=== PATIENT | male | born 1945 | race Caucasian/White ===

== ENCOUNTER 2017-01-15 03:29 | Inpatient (IN) | payer MEDICARE ==
[2017-01-15 03:43] VITALS: BMI 26.3
--- NOTE | 2017-01-15 04:10 | ED PDOC ---
Arrival/HPI - General Chief Complaint: Shortness Of Breath Time Seen by Provider: 01/15/17 03:35 Historian: Patient - History of Present Illness Narrative History of Present Illness (Text): 01/15/17 04:03 Jorje Mercado is a 71 year old male, whose past medical history includes CAD with stents, a-fib on coumadin, CABG and recent cardiac stress test with a ejection fraction of 12% on 11/12/2016, presents to the emergency department complaining of worsening shortness of breath associated with chest tightness beginning at 2: 30 am. Patient used Breo breathing treatment at home for minimal relief. Denies any fever, chills, headache, dizziness, nausea, vomiting, urinary symptoms or any other complaints at this time. Time/Duration: 1-3 hours Symptom Onset: Gradual Symptom Course: Worsening Severity Level: Mild Activities at Onset: Light Context: Home Past Medical History - Provider Review Nursing Documentation Reviewed: Yes - Cardiac Hx Pacemaker: Yes (12 yrs) - Pulmonary Hx Asthma: Yes Hx Chronic Obstructive Pulmonary Disease (COPD): Yes - Neurological Hx Neurological Disorder: No Hx Paralysis: No - HEENT Hx HEENT Disorder: No - Renal Hx Renal Disorder: No - Endocrine/Metabolic Hx Endocrine Disorders: No Hx Diabetes Mellitus Type 2: Yes - Hematological/Oncological Hx Blood Disorders: No Hx Blood Transfusions: No Hx Blood Transfusion Reaction: No - Integumentary Hx Dermatological Disorder: No - Musculoskeletal/Rheumatological Hx Musculoskeletal Disorders: No - Gastrointestinal Hx Gastrointestinal Disorders: No - Genitourinary/Gynecological Hx Genitourinary Disorders: No - Psychiatric Hx Psychophysiologic Disorder: No Hx Emotional Abuse: No Hx Physical Abuse: No Hx Substance Use: No - Surgical History Hx Open Heart Surgery: Yes (dble bypass 20 yrs) Other/Comment: pacemaker/defibrillator/12 yrs - Anesthesia Hx Anesthesia Reactions: No Hx Malignant Hyperthermia: No - Suicidal Assessment Feels Threatened In Home Enviroment: No Family/Social History - Physician Review Nursing Documentation Reviewed: Yes Family/Social History: No Known Family HX Smoking Status: Never Smoked Hx Alcohol Use: No Hx Substance Use: No Allergies/Home Meds Allergies/Adverse Reactions: Allergies No Known Allergies Allergy (Verified 01/15/17 03:39) Home Medications: Home Meds Medication Instructions Recorded Confirmed Warfarin [Coumadin] 5 mg PO DAILY 12/29/12 01/15/17 Furosemide [Lasix] 40 mg PO BID 11/12/16 01/15/17 Simvastatin 40 mg PO DAILY 11/12/16 01/15/17 Telmisartan/Hydrochlorothiazid 1 tab PO DAILY 11/12/16 01/15/17 [Micardis Hct 12.5 mg-40 mg] MetFORMIN [glucoPHAGE] 1,000 mg PO DAILY 11/30/16 12/06/16 Sotalol HCl [Sotalol HCl] 40 mg PO BID 11/30/16 01/15/17 Clopidogrel [Plavix] 75 mg PO DAILY 12/06/16 01/15/17 Albuterol Sulfate [Proair Hfa] 0.09 mg IH PRN PRN 01/15/17 01/15/17 Cyanocobalamin/FA/Pyridoxine 1 tab PO DAILY 01/15/17 01/15/17 [Folbic 2 mg-2.5 mg-25 mg] Fluticasone/Vilanterol [Breo 1 inhaler INH BID 01/15/17 01/15/17 Ellipta 200-25 Mcg INH] Metoprolol Succinate/Hctz 1 tab PO BID 01/15/17 01/15/17 [Metoprolol ER-Hctz 100-12.5 mg] Review of Systems - Physician Review All systems were reviewed & negative as marked: Yes - Review of Systems Constitutional: Normal. absent: Fatigue, Weight Change Respiratory: SOB, Cough Cardiovascular: Chest Pain. absent: Palpitations Gastrointestinal: Normal. absent: Abdominal Pain, Diarrhea, Nausea, Vomiting Neurological: Normal. absent: Headache, Dizziness Psychiatric: Normal Physical Exam Vital Signs Reviewed: Yes Vital Signs Temp Pulse Resp BP Pulse Ox 01/15/17 07:40 98.2 F 71 20 130/70 95 01/15/17 07:07 130/70 01/15/17 07:02 69 16 137/70 94 L 01/15/17 04:23 71 20 132/68 97 01/15/17 04:00 20 93 L 01/15/17 03:41 98.6 F 76 20 163/88 H 96 Temperature: Afebrile Blood Pressure: Hypertensive Pulse: Regular Respiratory Rate: Normal Appearance: Positive for: Well-Appearing, Non-Toxic, Comfortable Pain Distress: None Mental Status: Positive for: Alert and Oriented X 3 - Systems Exam Head: Present: Atraumatic, Normocephalic Pupils: Present: PERRL Extroacular Muscles: Present: EOMI Conjunctiva: Present: Normal Ears: Present: NORMAL TM Mouth: Present: Moist Mucous Membranes Pharnyx: Present: Normal Respiratory/Chest: Present: Wheezes, Rhonchi. No: Respiratory Distress, Accessory Muscle Use Cardiovascular: Present: Normal S1, S2, Irregular Rhythm. No: Murmurs Abdomen: Present: Normal Bowel Sounds. No: Tenderness, Distention, Peritoneal Signs Upper Extremity: Present: Normal Inspection. No: Cyanosis, Edema Lower Extremity: Present: Normal Inspection, Neurovascularly Intact. No: Edema , Tenderness, Swelling Neurological: Present: GCS=15, CN II-XII Intact, Speech Normal, Motor Func Grossly Intact, Normal Sensory Function Skin: Present: Warm, Dry, Normal Color. No: Rashes Psychiatric: Present: Alert, Oriented x 3, Normal Insight, Normal Concentration Medical Decision Making ED Course and Treatment: 01/15/17 04:12 Impression: A 71 year old male presenting to emergency department complaining of worsening shortness of breath and chest tightness since earlier today. Plan: -- EKG -- Labs, cardiac enzymes -- Chest X-ray -- Reassess and disposition Progress Notes: 01/15/17 04:13 EKG interpreted by me: Paced at 81 bpm. 01/15/17 06:02 Chest X-ray interpreted by me: Right lower lobe infiltrate. Increased vascular markings. 01/15/17 06:21 Case discussed with who is aware and agrees with plan to admit patient to the hospital. Accepts patient under his service with on cardiology consult. - Lab Interpretations Lab Results: 01/15/17 04:10 01/15/17 04:10 Lab Results 01/15/17 04:10: WBC 12.0 H D, RBC 4.14, Hgb 13.0 L, Hct 37.4 L, MCV 90.3, MCH 31.4, MCHC 34.8, RDW 12.9, Plt Count 182, MPV 10.0, PT 28.1 H, INR 2.60 H, APTT 39.9 H, Sodium 133, Potassium 4.0, Chloride 96 L, Carbon Dioxide 28, Anion Gap 13, BUN 42 H, Creatinine 0.9, Est GFR ( Amer) > 60, Est GFR (Non-Af Amer ) > 60, Random Glucose 167 H, Calcium 9.3, Total Bilirubin 0.9, AST 31, ALT 28, Alkaline Phosphatase 94, Lactate Dehydrogenase 625, Total Creatine Kinase 43, Troponin I 0.03, NT-Pro-B Natriuret Pep 2140 H, Total Protein 7.7, Albumin 4.1, Globulin 3.5, Albumin/Globulin Ratio 1.2, Procalcitonin < 0.05 L I have reviewed the lab results: Yes - RAD Interpretation Radiology Orders: 01/15/17 04:06 CHEST PORTABLE [RAD] Stat Photoengraving Proofer: ED Physician - EKG Interpretation Interpreted by ED Physician: Yes Type: 12 lead EKG - Medication Orders Current Medication Orders: Albuterol/Ipratropium (Duoneb 3 Mg/0.5 Mg (3 Ml) Ud) 3 ml IH Q2H PRN PRN Reason: Shortness of Breath Atorvastatin Calcium (Lipitor) 40 mg PO DAILY [facility] Last Admin: 01/15/17 11:28 Dose: 40 MG Clopidogrel Bisulfate (Plavix) 75 mg PO DAILY [facility] Last Admin: 01/15/17 11:28 Dose: 75 MG Furosemide (Lasix) 40 mg IVP DAILY [facility] Last Admin: 01/15/17 11:27 Dose: 40 MG MAR Blood Pressure Document 01/15/17 11:27 LGA (Rec: 01/15/17 11:27 LGA [facility] [id number]) Blood Pressure Blood Pressure (100/60-150/90) 130/72 IVP Administration Document 01/15/17 11:27 LGA (Rec: 01/15/17 11:27 LGA [facility] [id number]) Charges for Administration # of IVP Administrations 1 Hydrochlorothiazide (Microzide) 12.5 mg PO DAILY [facility] Last Admin: 01/15/17 11:28 Dose: 12.5 MG Levofloxacin (Levaquin) 500 mg PO DAILY [facility] Last Admin: 01/15/17 11:27 Dose: 500 MG Lisinopril (Zestril) 2.5 mg PO DAILY [facility] Last Admin: 01/15/17 11:33 Dose: 2.5 MG MAR Pulse and Blood Pressure Document 01/15/17 11:33 LGA (Rec: 01/15/17 11:34 LGA [facility] [id number]) Pulse Pulse Rate (60-90) 89 Metformin HCl (Glucophage) 1,000 mg PO BID [facility] Last Admin: 01/15/17 17:52 Dose: 1,000 MG Methylprednisolone (Solu-Medrol) 40 mg IVP Q12 [facility] Last Admin: 01/15/17 11:28 Dose: 40 MG IVP Administration Document 01/15/17 11:28 LGA (Rec: 01/15/17 11:28 LGA [facility] [id number]) Charges for Administration # of IVP Administrations 1 Sotalol HCl (Betapace) 40 mg PO BID [facility] Last Admin: 01/15/17 17:52 Dose: 40 MG MAR Pulse and Blood Pressure Document 01/15/17 17:52 LGA (Rec: 01/15/17 17:53 LGA [facility] [id number]) Pulse Pulse Rate (60-90) 70 Blood Pressure Blood Pressure (100/60-150/90) 130/75 Warfarin Sodium (Coumadin) 7.5 mg PO 1800 [facility] PRN Reason: Protocol Last Admin: 01/15/17 17:52 Dose: 7.5 MG Discontinued Medications Albuterol/Ipratropium (Duoneb 3 Mg/0.5 Mg (3 Ml) Ud) 3 ml IH ONCE STA Stop: 01/15/17 04:16 Last Admin: 01/15/17 04:17 Dose: 3 ML Albuterol/Ipratropium (Duoneb 3 Mg/0.5 Mg (3 Ml) Ud) 3 ml IH [id number] BRIANNA Stop: 01/15/17 15:31 Last Admin: 01/15/17 11:57 Dose: 3 ML Furosemide (Lasix) 40 mg IVP ONCE ONE Stop: 01/15/17 05:57 Last Admin: 01/15/17 07:07 Dose: 40 MG MAR Blood Pressure Document 01/15/17 07:07 EKEOO (Rec: 01/15/17 07:08 [id number] Blood Pressure Blood Pressure (100/60-150/90) 130/70 IVP Administration Document 01/15/17 07:07 EKEOO (Rec: 01/15/17 07:08 [place] [facility] [id number][place] Charges for Administration # of IVP Administrations 1 Furosemide (Lasix) 40 mg IV ONCE ONE Stop: 01/15/17 16:01 Last Admin: 01/15/17 16:16 Dose: 40 MG MAR Blood Pressure Document 01/15/17 16:16 LGA (Rec: 01/15/17 16:17 LGA [id number]) Blood Pressure Blood Pressure (100/60-150/90) 135/78 eMAR Start Stop Document 01/15/17 16:16 LGA (Rec: 01/15/17 16:17 LGA [id number]) Intravenous Solution Start Date 01/15/17 Start Time 16:16 End Date 01/15/17 End time 16:16 Total Infusion Time 0 Ceftriaxone Sodium (Rocephin 1 Gram Ivpb) 100 mls @ 200 mls/hr IV ONCE STA PRN Reason: Protocol Stop: 01/15/17 06:25 Last Admin: 01/15/17 07:08 Dose: 200 MLS/HR eMAR Start Stop Document 01/15/17 07:08 EKEOO (Rec: 01/15/17 07:08 [place] [facility] [place] [id number][place] Intravenous Solution Start Date 01/15/17 Start Time 07:08 Azithromycin (Zithromax 500mg In Ns) 250 mls @ 166.667 mls/hr IV STAT STA PRN Reason: Protocol Stop: 01/15/17 07:26 Last Admin: 01/15/17 16:17 Dose: 166.667 MLS/HR eMAR Start Stop Document 01/15/17 16:17 LGA (Rec: 01/15/17 16:18 LGA [id number]) Intravenous Solution Start Date 01/15/17 Start Time 16:17 End Date 01/15/17 End time 17:47 Total Infusion Time 90 Potassium Chloride (K-Dur 20 Meq Er Tab) 20 meq PO ONCE ONE Stop: 01/15/17 16:01 Last Admin: 01/15/17 16:16 Dose: 20 MEQ - Beatrizibe Statement The provider has reviewed the documentation as recorded by the Troy Baldwin Provider Attestation: All medical record entries made by the Troy were at my direction and personally dictated by me. I have reviewed the chart and agree that the record accurately reflects my personal performance of the history, physical exam, medical decision making, and the department course for this patient. I have also personally directed, reviewed, and agree with the discharge instructions and disposition. Disposition/Present on Arrival - Present on Arrival Any Indicators Present on Arrival: No History of DVT/PE: No History of Uncontrolled Diabetes: No Urinary Catheter: No History of Decub. Ulcer: No History Surgical Site Infection Following: None - Disposition Have Diagnosis and Disposition been Completed?: Yes Diagnosis: CHF (congestive heart failure), Pneumonia Disposition: HOSPITALIZED Disposition Time: 06:00 Patient Plan: Admission Patient Problems: Current Active Problems Problem Status Diagnosed CHF (congestive heart failure) Acute Pneumonia Acute Condition: STABLE
[2017-01-15] MEDS ORDERED: Albuterol-Ipratrop 3 mg / 0.5 (3 ml) UD IH STA (04:15)
[2017-01-15 04:26] LABS: HEMATOCRIT 37.4 % (42.0-52.0); MEAN CELL VOLUME 90.3 fL (80.0-105.0); MEAN CORPUSCULAR HEMOGLOBIN 31.4 pg (25.0-35.0); MEAN CORPUSCULAR HGB CONC 34.8 g/dl (31.0-37.0); RED CELL DISTRIBUTION WIDTH 12.9 % (11.5-14.5)
[2017-01-15 04:38] LABS: INR 2.6 (0.93-1.08); PARTIAL THROMBOPLASTIN TIME 39.9 Seconds (23.7-30.8)
[2017-01-15 04:45] LABS: ALB/GLOB RATIO 1.2 (1.1-1.8); ALKALINE PHOSPHATASE 94 U/L (38-133); ALT/SGPT 28 U/L (7-56); AST/SGOT 31 U/L (15-59); BILIRUBIN,TOTAL 0.9 mg/dL (0.2-1.3); BLOOD UREA NITROGEN 42 mg/dL (7-21); CALCIUM 9.3 mg/dL (8.4-10.5); CARBON DIOXIDE 28 mmol/L (21-33); CHLORIDE 96 mmol/L (98-107); GFR AFRICAN-AMERICAN > 60; GLUCOSE,RANDOM 167 mg/dL (70-110); SODIUM 133 mmol/L (132-148); TOTAL PROTEIN 7.7 g/dL (5.8-8.3)
[2017-01-15 04:57] LABS: TROPONIN I 0.03 ng/mL
[2017-01-15] MEDS ORDERED: cefTRIAXone 1 gm 100 ML IV STA (05:56)
[2017-01-15] MEDS ORDERED: Azithromycin 500MG/NS 250ml 250 ML IV STA (05:57)
[2017-01-15] MEDS ORDERED: Albuterol-Ipratrop 3 mg / 0.5 (3 ml) UD IH PRN (07:28)
[2017-01-15] MEDS: Albuterol-Ipratrop 3 mg / 0.5 (3 ml) UD IH SCH ×2 (09:21→11:57)
--- NOTE | 2017-01-15 11:18 | RAD ---
HISTORY: fever COMPARISON: Comparison is made to 10/13/2013 FINDINGS: LUNGS: Interval appearance of focal reticular opacity/ infiltrate at the right lower lung compared to the previous exam. PLEURA: No significant pleural effusion identified, no pneumothorax apparent. CARDIOVASCULAR: Normal. OSSEOUS STRUCTURES: No significant abnormalities. VISUALIZED UPPER ABDOMEN: Normal. OTHER FINDINGS: Left-sided pacemaker is again seen in place. IMPRESSION: Suspicious for new focal reticular opacities/ infiltrates at the right lower lung.
[2017-01-15] MEDS: levoFLOXacin 500 MG TAB PO SCH (11:27)
[2017-01-15] MEDS: MethylPREDNISolone 40 mg Vial IVP SCH ×2 (11:28→22:14)
--- NOTE | 2017-01-15 12:15 | CON ---
DATE: 01/15/2017 REASON FOR CONSULTATION: Acute bronchitis. REFERRING PHYSICIAN: Dr. Sukhwinder Conroy. History is obtained via extensive discussion with the patient and family. I have also reviewed the chart at length. HISTORY OF PRESENT ILLNESS: The patient is a 71-year-old male with past medical history significant for extensive coronary artery disease, status post multiple cardiac stents, status post open heart surgery, cardiomyopathy, chronic atrial fibrillation, chronic obstructive pulmonary disease, who presents to [facility] with a 2-day history of worsening shortness of breath at rest, dyspnea on exertion, and cough. The patient denies sputum production. The patient also denies chest pain, coughing up of blood or chest pain-made worse with deep respirations. There is no history of temperatures, chills or infectious exposure. There is no history of night sweats, weight loss or appetite change prior to the above events. No history of leg or calf pains. No history of syncope or diaphoresis. No history of recent travel or trauma. REVIEW OF SYSTEMS: No history of nausea, vomiting or diarrhea. No acute urinary symptoms. No new neurological or musculoskeletal complaints. Rest of the review of systems is negative. ALLERGIES: No known allergies. SOCIAL HISTORY: Positive for former heavy tobacco usage. No alcohol. FAMILY HISTORY: No inheritable diseases. HOME MEDICATIONS: Include metoprolol, Breo Ellipta, ProAir, Micardis, Lasix, Plavix, Coumadin, sotalol, metformin, simvastatin. PHYSICAL EXAMINATION: GENERAL: The patient is not short of breath at rest. He is not using accessory muscles for breathing. VITAL SIGNS: Temperature is 98.6, pulse 69, respirations 16, blood pressure 130 /70. Oxygen saturation on nasal cannula is between 94-97%. HEENT: Normocephalic, atraumatic. NECK: No JVD. CARDIOVASCULAR: Systolic ejection murmur at the lower left sternal border. Questionable S3 gallop. LUNGS: Minimal crackles at the bases. Minimal rhonchi. Minimal wheezing. EXTREMITIES: Mild edema. No cyanosis, no clubbing. Calves are nontender to palpation. GASTROINTESTINAL: Abdomen is soft, nontender, nondistended. Bowel sounds are positive. SKIN: No acute rash. NEUROLOGIC: Limited at the present time. PERTINENT LABORATORY DATA: Chest x-ray was done and reviewed. There is a mild increase in the pulmonary vascular congestive changes. There are also chronic minimal right basilar changes. Complete metabolic profile: Chloride 96, BUN 42 , glucose 167. B-type natriuretic peptide 2140. Rest of the metabolic profile is within normal limits. CBC: White count 12.0, hemoglobin 13.0, hematocrit 37.4, platelets of 182. IMPRESSION: 1. Acute bronchitis. 2. Chronic obstructive pulmonary disease. 3. Congestive heart failure. 4. Extensive coronary artery disease. 5. Cardiomyopathy. 6. Chronic atrial fibrillation. PLAN: Again, I did discuss the case with the patient and family at length. The patient presents to [facility] with a 2-day history of worsening pulmonary symptoms. I did review the x-ray as above. The x-ray reveals mild pulmonary vascular congestive changes. There are also chronic changes noted at the right base. Cultures have been ordered and will be analyzed when feasible. The patient has been started on antibiotic therapy. I will also order a procalcitonin level--to discern whether there is an acute underlying pneumonia. On physical exam, the patient is in mild bronchospasm. I will continue with the current nebulizer treatments and intravenous steroids for now. Cardiology evaluation with Dr. Haider has been ordered. The patient remains on Lasix/afterload reduction. The patient does feel better this morning --compared to the previous few days. Additional pulmonary intervention will be based on the above results, as well as the clinical status of the patient. I will discuss the above with Dr. Conroy. Thank you very much for this pulmonary consultation. Roscoe Cole MD cc: [id number] TT: 01/15/2017 12:14:01 Confirmation # [id number] Dictation # [id number] BAIRES
--- NOTE | 2017-01-15 13:00 | HP ---
HISTORY OF PRESENT ILLNESS: The patient is a 71-year-old man with past medical history of ischemic cardiomyopathy s/p AICD placement, CAD status post CABG ( 1993), status post PCI with multiple stent placement (2012, 2013, and most recently in 11/2016), hyperlipidemia and atrial fibrillation who presented to [facility] for evaluation of a several hour history of dyspnea. Per discussion with the patient and his son, the patient was in his usual state of health until the day of presentation to the Emergency Department when he developed a sudden onset of chest tightness associated with dyspnea. The patient reported significant respiratory distress associated with accessory muscle use and conversational dyspnea. He denied any chest pain associated with his symptoms. The patient further denied any fevers, chills, rigors, exertional dyspnea or lower extremity edema or claudication preceding his onset of symptoms. Given his significant respiratory distress, the patient was brought to [facility] Emergency Department. Upon evaluation, he was noted to be tachypneic and hypoxic with an oxygen saturation of 90% on room air. The patient was placed on supplemental oxygen via nasal cannula and received multiple rounds of bronchodilator treatments with slight improvement in his respiratory symptoms. The patient was subsequently admitted to the telemetry cardozo for continued management of acute bronchitis versus possible CHF exacerbation. PAST MEDICAL HISTORY: As per HPI, also non-insulin dependent diabetes mellitus. PAST SURGICAL HISTORY: As per HPI. ALLERGIES: No known drug allergies. MEDICATIONS: Telmisartan/hydrochlorothiazide 40/12.5 mg p.o. daily, Lasix 40 mg p.o. b.i.d., sotalol 40 mg p.o. b.i.d., simvastatin 40 mg p.o. daily, Plavix 75 mg p.o. daily, metformin 1000 mg p.o. b.i.d., Coumadin 7.5 mg p.o. daily, ProAir HFA 2 puffs q.4-6 hours p.r.n. dyspnea or wheeze. FAMILY HISTORY: Significant for hypertension, diabetes and CAD. SOCIAL HISTORY: The patient reports social alcohol use. He denies any history of tobacco use or illicit drug abuse. REVIEW OF SYSTEMS: A 14 point review of systems is negative except as per HPI. PHYSICAL EXAMINATION: VITAL SIGNS: Temperature 98.2, pulse 71, blood pressure 130/70, respiratory rate 20, oxygen saturation 95% on 2 liters nasal cannula. GENERAL: No apparent distress. HEENT: Normocephalic, atraumatic. PERRL, EOMI. No scleral icterus, no conjunctival pallor. NECK: No JVD, no bruits. LUNGS: Scattered wheeze with rhonchi and decreased breath sounds to the right base. CARDIOVASCULAR: Regular rate and rhythm, normal S and S2. CHEST: AICD in place to left anterior chest wall. ABDOMEN: Normoactive bowel sounds, soft, nontender, nondistended. EXTREMITIES: Trace lower extremity edema bilaterally. NEUROLOGIC: Awake, alert and oriented x 3. No focal motor deficits. LABORATORY DATA: WBC 12, hemoglobin 13, hematocrit 37, platelets 182. Sodium 133, potassium 4, chloride 96, bicarb 28, BUN 42, creatinine 0.9, glucose 167. INR 2.6. Troponin 0.03. BNP 2140. IMAGING STUDIES: Chest x-ray demonstrates mild pulmonary venous congestion, AICD in place to left anterior chest wall. ASSESSMENT: The patient is a 71-year-old man with multiple medical comorbidities who was admitted to [facility] for management of acute bronchitis superimposed on possible congestive heart failure exacerbation. PLAN: 1. Acute bronchitis. Dr. Cole of pulmonary and critical care medicine has been consulted for further evaluation and recommendations. The patient has been started on bronchodilators and supplemental oxygen. We will start Solu- Medrol 40 mg IV q.12 hours and Levaquin 500 mg p.o. daily. 2. Ischemic cardiomyopathy status post CABG, status post AICD. Dr. Haider of cardiology has been consulted for further evaluation and recommendations. The patient will be started on furosemide 40 mg IV daily. We will resume home medications consisting of Coumadin 7.5 mg p.o. daily, Lipitor 40 mg p.o. daily, hydrochlorothiazide 12.5 mg p.o. daily, Plavix 75 mg p.o. daily and sotalol 40 mg p.o. b.i.d. 3. CAD status post PCI with multiple stent placements, status post CABG. As above, Dr. Haider of cardiology has been consulted. Continue with care as per # 2. 4. Hypertension. Blood pressure controlled. Continue with current medications. 5. Hyperlipidemia. Continue with Lipitor 40 mg p.o. daily. 6. Non-insulin dependent diabetes mellitus. Continue with metformin 1000 mg p.o. b.i.d. 7. Atrial fibrillation. The patient remains rate controlled. Continue with sotalol 40 mg p.o. b.i.d. and Coumadin 7.5 mg p.o. daily. Continue to monitor INR daily with goal INR of 2-3. 8. GI prophylaxis not indicated as patient is eating. DVT prophylaxis not indicated as patient is on Coumadin for his underlying atrial fibrillation. CODE STATUS: Full code. Sukhwinder Conroy MD cc: [id number] TT: 01/15/2017 13:00:00 sn MTDD
--- NOTE | 2017-01-15 15:31 | CON ---
DATE: 01/15/2017 REASON FOR CONSULTATION AND FOLLOWUP: Cardiac evaluation, history of coronary artery disease, status multiple stents, cardiomyopathy, CABG. Admitted with shortness of breath. BRIEF CLINICAL HISTORY: This is a 71-year-old male with a past medical history significant for coron ran artery disease status post CABG in 1993, status post multiple PTCAs x 3 in 2012, 2013, 2012 LAD, 2014 circumflex and then most recently 12/06/2016, patient had PTCA of the circumflex was done. Came in with shortness of breath. Denies any chest pain. PAST HISTORY: Significant for chronic atrial fibrillation, on Coumadin; history of cardiomyopathy, s tatus post coronary artery bypass in 1993, status post multiple stents, PTCA 2012 and 2013, 2012 LAD, 2014 the circumflex, and most recently 12/06/2016, PTCA of the circumflex was done. History of chronic atrial fibrillation. PREVIOUS CARDIAC WORKUP: As follows: The patient had cardiac catheterization and stenting with a dr ug-eluting stent of the proximal circumflex that was done on 12/06/2016. At that time, the cardiac c atheterization revealed [place] triple vessel disease, occluded SVG to circumflex, and occluded SVG to RCA on previous cath, patent MAHMOOD to LAD, 99% stenosis noted in the proximal large co-dominant. Isc hemic cardiomyopathy, ejection fraction 25%. ADP was in the range of 25. History of chronic atrial fibrillation. Recent stress test prior to last catheterization dated 11/02/____ that showed ejection fraction 12%. Stress myocardial study, partially reversible suggestive of ischemia, ejection fracti on 20%. The patient's last echo shows ejection fraction 31%, mild tricuspid regurgitation. History of AICD, biventricular AICD done with a 3 lead right atrium, left ventricle, right ventricle. By las t cath, ejection fraction 25%, EDP was in the range of 15. SOCIAL HISTORY: Denies any smoking. Denies any history of alcohol abuse. CURRENT MEDICATIONS: The patient is taking at home Coumadin 7.5 mg, baby aspirin, metformin, aspirin 81 mg before and now is on Plavix 75 mg daily, Flexeril 5 mg daily, Lasix and atorvastatin and sotal ol 40 mg twice a day, metformin and Plavix. REVIEW OF SYSTEMS: As per HPI. ALLERGIES: No known drug allergy. PHYSICAL EXAMINATION: As follows: VITAL SIGNS: Temperature afebrile, heart rate 71, blood pressure 130/70. HEENT: PERRLA, intact. NECK: Supple. No carotid bruits. No thyromegaly. CHEST: Clear to auscultation. HEART: S1, S2 regular. ABDOMEN: Soft. EXTREMITIES: Clubbing and cyanosis negative. BLOOD WORKUP: As follows: WBC 12, hemoglobin 13, hematocrit 37.4, platelet count 182. Chemistry sh ows sodium 130, potassium 4, chloride 96, carbon dioxide 28, anion gap of 42, BUN 13, creatinine 0.9. BNP 21,040. Troponin 0.03. PSA 7.7. TSH 1.4, 1.12. Chest x-ray shows mild congestion. IMPRESSION: Decompensated congestive heart failure, gsgib-we-gvykrhb systolic dysfunction, status po st cardiac catheterization with angioplasty of the proximal circumflex dated 12/06/2016 that revealed ____. Prior to that, patient had percutaneous transluminal coronary angioplasty in 2013 in circumla ex. Prior to that in 2012, patient had percutaneous transluminal coronary angioplasty of left anteri or descending, history of coronary artery disease, coronary artery bypass graft in 1993, history of p aroxysmal atrial fibrillation, status post automatic implanted cardiac defibrillator, ischemic cardio myopathy, hypertension, hyperlipidemia, diabetes. RECOMMENDATION: We will get a lipid profile tomorrow. Continue diuretics. Continue anticoagulation . The patient's INR is 2.6, normal renal function. Agree with Dr. Sukhwinder Conroy that patient has some element of bronchitis as well as CHF. We will follow with you. We will continue Coumadin. Co ntinue Lasix. We will give extra dose of Lasix. Possible discharge home in a day or two. We will f paige with you. Thank you, ____, for providing the opportunity in taking care of the patient. We will repeat brie st x-ray in the morning, PA lateral we will repeat in afternoon. Pavel Haider MD cc: [id number] TT: 01/15/2017 15:30:35 Confirmation # [id number] Dictation # [id number] sn
[2017-01-15] MEDS ORDERED: Potassium Chloride 20 mEq ER Tab PO ONE (16:00)
--- NOTE | 2017-01-15 18:05 | CARD ---
APPROVED REPORT EKG Measurement Heart [id number] <Conclusion> Electronic ventricular pacemaker consider undersensing
--- NOTE | 2017-01-15 18:59 | RAD ---
HISTORY: F/U CHF and compare COMPARISON: 01/15/2017 at 4:58 a.m. TECHNIQUE: Chest PA and lateral FINDINGS: LUNGS: No active pulmonary disease. There is interval improved aeration in both lungs. There is bibasilar atelectasis. PLEURA: No significant pleural effusion identified. No pneumothorax apparent. CARDIOVASCULAR: There is persistent cardiomegaly. Status post CABG. There is stable position of left-sided pacing device. OSSEOUS STRUCTURES: No significant abnormalities. VISUALIZED UPPER ABDOMEN: Normal. OTHER FINDINGS: None. IMPRESSION: Interval improved aeration in both lungs. Bibasilar atelectasis.
[2017-01-16 06:02] LABS: ADD MANUAL DIFF? NO
[2017-01-16 06:11] LABS: GRAN # 7.52 (1.4-6.5); GRAN % 91.5 % (50.0-68.0); HEMATOCRIT 36.4 % (42.0-52.0); LYMPH # 0.6 (1.2-3.4); LYMPH % 7.3 % (22.0-35.0); MEAN CELL VOLUME 92.2 fL (80.0-105.0); MEAN CORPUSCULAR HEMOGLOBIN 31.1 pg (25.0-35.0); MEAN CORPUSCULAR HGB CONC 33.8 g/dl (31.0-37.0); MEAN PLATELET VOLUME 10.1 fl (7.0-11.0); MONO # 0.1 (0.1-0.6); MONO % 1.2 % (1.0-6.0); PLATELET COUNT 187 [, 10^3/uL] (120.0-450.0); RED CELL DISTRIBUTION WIDTH 13.2 % (11.5-14.5); WHITE BLOOD COUNT 8.2 [, 10^3/ul] (4.5-11.0)
[2017-01-16 06:20] LABS: INR 2.4 (0.93-1.08)
[2017-01-16 06:28] LABS: ALB/GLOB RATIO 1.1 (1.1-1.8); BILIRUBIN,TOTAL 0.7 mg/dL (0.2-1.3); CALCIUM 9.2 mg/dL (8.4-10.5); MAGNESIUM 2.1 mg/dL (1.7-2.2); PHOSPHOROUS 3.2 mg/dL (2.5-4.5); POTASSIUM 4.3 mmol/L (3.6-5.0); TOTAL PROTEIN 7.3 g/dL (5.8-8.3)
[2017-01-16] MEDS: Levalbuterol 0.63 MG/3 ML Inhal Soln UD IH SCH ×3 (08:05→19:34)
--- NOTE | 2017-01-16 08:47 | PN ---
DATE: 01/16/2017 PULMONARY NOTE SUBJECTIVE: The patient appears comfortable this morning. He is not short of breath at rest. PHYSICAL EXAMINATION: VITAL SIGNS: Temperature is 97.7, pulse 58, respirations 19, blood pressure 94/ 50. Oxygen saturation on nasal cannula is between 94-100%. HEENT: Normocephalic, atraumatic. No JVD. CARDIOVASCULAR: Systolic ejection murmur at the lower left sternal border. Questionable S3 gallop. LUNGS: Minimal crackles at the bases. Less rhonchi. Less wheezing. EXTREMITIES: Mild edema. No cyanosis, no clubbing. Calves are nontender to palpation. GASTROINTESTINAL: Abdomen is soft, nontender, nondistended. Bowel sounds are positive. SKIN: No acute rash. NEUROLOGIC: Limited at the present time. IMPRESSION: 1. Acute bronchitis. 2. Chronic obstructive pulmonary disease. 3. Congestive heart failure. 4. Extensive coronary artery disease. 5. Cardiomyopathy. 6. Chronic atrial fibrillation. PLAN: The patient appears much more comfortable this morning. He is not short of breath at rest. He states he is feeling much better overall. On physical exam, his bronchospasm is certainly less. I will decrease the intravenous steroids this morning. I will also restart his nebulizer treatments - on a scheduled dosage. For now, I will use Xopenex - given the patient's advanced heart disease. The patient also remains on antibiotic therapy. There no temperatures noted. The leukocytosis has now resolved. I would continue with the cardiology evaluation, as per Dr. Haider. His input is noted. Clinical status of the patient is certainly improved - compared to the initial presentation. Hopefully, the patient will be out of bed this morning. I will discuss the above with Dr. Conroy. Roscoe Cole MD cc: [id number] TT: 01/16/2017 08:46:27 Confirmation # [id number] Dictation # [id number] jn DEQUAN
--- NOTE | 2017-01-16 09:18 | PN ---
DATE: 01/16/2017 SUBJECTIVE: The patient is seen and examined at bedside on the telemetry cardozo. No acute events overnight. He remains afebrile and hemodynamically stable. This morning, the patient reports significant improvement in his respiratory status and states he feels quite improved as compared to admission. He does report some persistent wheeze, but again, states this is significantly improved. Otherwise, he denies chest pain, palpitations, fevers, chills, rigors , orthopnea, or lower extremity edema. OBJECTIVE: VITAL SIGNS: Temperature 97.7, pulse 58, blood pressure 94/50, respiratory rate 19, oxygen saturation 94% on room air. GENERAL: No apparent distress. HEENT: PERRL. EOMI. No scleral icterus. No conjunctival pallor. NECK: No JVD, no bruits. LUNGS: Few end-expiratory wheeze with decreased breath sounds to the right base. CARDIOVASCULAR: Regular rate and rhythm. Normal S1 and S2. CHEST: AICD in place to left anterior chest wall. ABDOMEN: Normoactive bowel sounds, soft, nontender, nondistended. EXTREMITIES: No edema. NEUROLOGIC: Awake, alert, and oriented x 3. No focal motor deficits. LABORATORY DATA: WBC 8.2, hemoglobin 12, hematocrit 36, platelets 187. Sodium 136, potassium 4.3, chloride 96, bicarb 26, BUN 56, creatinine 2.4. Glucose 223. INR 2.4. Procalcitonin less than 0.05. IMAGING STUDIES: Chest x-ray demonstrates interval improvement in aeration of both lungs. ASSESSMENT: The patient is a 71-year-old man with multiple medical comorbidities who was admitted to [facility] for management of acute bronchitis superimposed on possible CHF exacerbation. PLAN: 1. Acute bronchitis, improving. Input from Dr. Cole of pulmonary and critical care medicine noted and appreciated. The patient is demonstrated significant improvement with IV steroids, bronchodilators, and Lasix. Steroids have been tapered to Solu-Medrol 30 mg IV q. 12 hours. Continue with supplemental oxygen and bronchodilators as needed. Continue with Levaquin 500 mg p.o. daily. 2. Ischemic cardiomyopathy status post coronary artery bypass graft, status post automatic implantable cardioverter-defibrillator. Input from Dr. Haider of cardiology noted and greatly appreciated. The patient has diuresed well since admission, and morning labs demonstrate an acute rise in creatinine likely secondary to aggressive diuresis. We will discontinue Lasix. Continue with Coumadin 7.5 mg p.o. daily, Lipitor 40 mg p.o. daily, hydrochlorothiazide 12.5 mg p.o. daily, Plavix 75 mg p.o. daily, sotalol 40 mg p.o. b.i.d. 3. Acute on chronic systolic heart failure exacerbation, improving. As above, the patient has diuresed nicely since admission. We will discontinue Lasix given acute rise in renal function. 4. Acute kidney injury, etiology secondary to aggressive diuresis. As above, we will hold Lasix. 5. Coronary artery disease, status post percutaneous coronary intervention with multiple stent placements, status post coronary artery bypass graft. Input from Dr. Haider of cardiology noted and appreciated. Continue with care as above. 6. Hypertension. Blood pressure controlled. Continue with current medications. 7. Hyperlipidemia. Continue with Lipitor 40 mg p.o. daily. 8. Noninsulin dependent diabetes mellitus. Continue with metformin 1000 mg p.o. b.i.d. 9. Atrial fibrillation. The patient remains rate-controlled. Continue with sotalol 40 mg p.o. b.i.d. and Coumadin 7.5 mg p.o. daily. Continue to monitor INR daily with goal INR of 2-3. 10. Prophylaxis. GI prophylaxis is not indicated, as the patient is eating. DVT prophylaxis is not indicated, as the patient is on Coumadin for his underlying atrial fibrillation. CODE STATUS: Full code. Sukhwinder Conroy MD cc: [id number] TT: 01/16/2017 09:17:33 Confirmation # [id number] Dictation # [id number] jn DEQUAN
[2017-01-16] MEDS: levoFLOXacin 500 MG TAB PO SCH (11:17)
[2017-01-16] MEDS: MethylPREDNISolone 40 mg Vial IVP SCH ×2 (11:18→22:11)
[2017-01-16] MEDS: Milrinone 20mg/100ml D5W 100 ML IV PRN (21:09)
[2017-01-17] MEDS: Levalbuterol 0.63 MG/3 ML Inhal Soln UD IH SCH ×4 (01:10→19:29)
[2017-01-17 06:55] LABS: ADD MANUAL DIFF? NO
[2017-01-17 07:09] LABS: GRAN # 11.17 (1.4-6.5); GRAN % 89.9 % (50.0-68.0); HEMATOCRIT 34.3 % (42.0-52.0); LYMPH % 7.7 % (22.0-35.0); MEAN CELL VOLUME 90.7 fL (80.0-105.0); MEAN CORPUSCULAR HGB CONC 34.1 g/dl (31.0-37.0); MEAN PLATELET VOLUME 10.3 fl (7.0-11.0); MONO # 0.3 (0.1-0.6); MONO % 2.4 % (1.0-6.0); PLATELET COUNT 229 [, 10^3/uL] (120.0-450.0); RED CELL DISTRIBUTION WIDTH 13.1 % (11.5-14.5); WHITE BLOOD COUNT 12.4 [, 10^3/ul] (4.5-11.0)
[2017-01-17 07:16] LABS: INR 3.24 (0.93-1.08)
[2017-01-17 07:20] LABS: ALB/GLOB RATIO 1.1 (1.1-1.8); BILIRUBIN,TOTAL 0.5 mg/dL (0.2-1.3); CALCIUM 8.9 mg/dL (8.4-10.5); POTASSIUM 4.6 mmol/L (3.6-5.0); TOTAL PROTEIN 6.6 g/dL (5.8-8.3)
--- NOTE | 2017-01-17 08:17 | PN ---
DATE: 01/16/2017 REASON FOR CONSULTATION AND FOLLOWUP: Cardiac evaluation, history of coronary artery disease, status post multiple stents, cardiomyopathy, CABG, admitted with shortness of breath, possible upper respir atory tract infection, mild CHF. BRIEF CLINICAL HISTORY: A 71-year-old male with past medical history significant for coronary artery disease, status post CABG in 1993, status post multiple PTCA and stents in 2012, LAD 2013 circumflex and most recently 12/06/2016 patient had PTCA of the circumflex was done, came in with a complaint of runny nose, complaining of shortness of breath, cough and started antibiotic as well as Lasix, histor y of chronic atrial fibrillation on Coumadin. PHYSICAL EXAMINATION: VITAL SIGNS: Temperature afebrile, heart rate 59, blood pressure 112/55. HEENT: PERRLA. Extraocular muscles intact. NECK: Supple. No carotid bruits. No thyromegaly. CHEST: Clear to auscultation. HEART: S1, S2 regular. ABDOMEN: Soft. EXTREMITIES: Clubbing and cyanosis negative. LABORATORY DATA: Blood workup as follows: WBC ____, hemoglobin 12.3, hematocrit 36.4, platelet coun t 187. Chemistry shows sodium 132, potassium 4.0, chloride 96, carbon dioxide 26, anion gap of 15, B UN 26, creatinine 2.4. IMPRESSION: Acute kidney injury, possibly secondary to over diuresed. BNP 5350, renal insufficiency , coronary artery disease, coronary artery bypass graft, status post multiple stents, history of cor onary artery bypass graft in 1993, decompensated congestive heart failure, acute on chronic systolic dysfunction, most recent angioplasty of the proximal circumflex on 12/06/2016, decreased left ventricul ar function, ejection fraction 20%, status post biventricular automatic implantable cardioverter-defi brillator, 3 leads noted, ejection fraction 25% ____ . RECOMMENDATION: We will start low dose of Primacor to prevent renal function and prevent going into decompensated congestive heart failure further, and put Lasix. Follow up ____. Continue antibiotic, Lasix. We will check lab in the morning. Lasix ____ diuretics, because of renal insufficiency. We w ill repeat the lab in the morning. Continue diuresis. Will follow with you. Thank you, Dr. Sukhwinder Conroy, for providing the opportunity in taking care of this patient. Will start Lasix p.o. from a.m. depending on the renal function, but will start Primacor to get more diure sis as the patient clinically ____ CHF as well as BNP is elevated. We will follow with you. Will re peat chest x-ray in the morning, PA and lateral. The patient is on anticoagulation for AFib. Will c ontinue ____ therapeutic. Will repeat BNP in the morning. Pavel Haider MD cc: [id number] TT: 01/16/2017 19:34:12 Confirmation # [id number] Dictation # [id number] [place]
--- NOTE | 2017-01-17 09:30 | PN ---
DATE: 01/17/2017 PULMONARY NOTE SUBJECTIVE: The patient appears very comfortable at rest. He is not short of breath. PHYSICAL EXAMINATION: VITAL SIGNS: Temperature is 97.4, pulse 66, respirations 18. Blood pressure 114/60. Oxygen saturation on nasal cannula ranges between 91-100%. HEENT: Normocephalic, atraumatic. No JVD. CARDIOVASCULAR: Systolic ejection murmur at the lower left sternal border, questionable S3 gallop. LUNGS: Minimal/less crackles at the bases. Minimal/less rhonchi. No wheezing. EXTREMITIES: Mild edema. No cyanosis, no clubbing. Calves are nontender to palpation. GASTROINTESTINAL: Abdomen is soft, nontender, nondistended. Bowel sounds are positive. SKIN: No acute rash. NEUROLOGIC: Limited at the present time. IMPRESSION: 1. Acute bronchitis. 2. Chronic obstructive pulmonary disease. 3. Congestive heart failure. 4. Extensive coronary artery disease. 5. Cardiomyopathy. 6. Chronic atrial fibrillation. PLAN: The patient appears very comfortable this morning. He is not short of breath at rest. He states he is feeling much better overall. On physical exam , his bronchospasm continues to resolve. I will continue with the current nebulizer treatments and change to oral steroids this morning. The patient remains on antibiotic therapy. There are no temperatures noted. There is a very mild leukocytosis - which may be partly due to the steroids. I would continue with the treatment for congestive heart failure, as per cardiology. The patient is now on a milrinone drip. Input by Dr. Haider is noted. Clinical status of the patient is certainly improved - compared to the initial presentation. I did discuss the above with Dr. Conroy length. Roscoe Cole MD cc: [id number] TT: 01/17/2017 09:29:25 Confirmation # [id number] Dictation # [id number] ricardo BAIRES
--- NOTE | 2017-01-17 09:42 | PN ---
DATE: 01/17/2017 SUBJECTIVE: The patient seen and examined at bedside on the telemetry cardozo. No acute events overnight. He remains afebrile and hemodynamically stable and with continued improvement in his respiratory status. This morning the patient states he feels great and offers no complaints. OBJECTIVE: VITAL SIGNS: Temperature 97.4, pulse 62, blood pressure 114/60, respiratory rate 20, oxygen saturation 94% on 2 liters nasal cannula. GENERAL: No apparent distress. HEENT: PERRL. EOMI. No scleral icterus. No conjunctival pallor. NECK: No JVD, no bruits. LUNGS: Faint end expiratory wheeze. CARDIOVASCULAR: Regular rate and rhythm. Normal S1 and S2. CHEST: AICD in place to the left anterior chest wall. ABDOMEN: Normoactive bowel sounds, soft, nontender, nondistended. EXTREMITIES: No edema. NEUROLOGIC: Awake, alert and oriented x 3. No focal motor deficits. LABORATORY DATA: WBC 12.4 with 90% neutrophils, hemoglobin 12, hematocrit 34, platelets 229. Sodium 134, potassium 4.6, chloride 94, bicarb 25, BUN 86, creatinine 3.9, glucose 239. A1c 6.8. INR 3.24. Blood cultures with no growth to date. ASSESSMENT: The patient is a 71-year-old man with multiple medical comorbidities who was admitted to [facility] for management of acute bronchitis superimposed on congestive heart failure exacerbation and whose hospital course was complicated by acute kidney injury. PLAN: 1. Acute bronchitis, resolving. Input from Dr. Cole of pulmonary and critical care medicine noted and appreciated. The patient has demonstrated significant improvement in his respiratory status. Continue with bronchodilators and supplemental oxygen as needed. Steroids have again been adjusted by Dr. Cole to prednisone 40 mg p.o. daily. In light of the patient 's renal dysfunction, will lower Levaquin to 250 mg p.o. daily to complete a 7- day course (today is day #3 of 7). 2. Ischemic cardiomyopathy status post coronary artery bypass graft, status post AICD, input from Dr. Haider of cardiology noted and appreciated. Given the patient's deteriorating renal function, he has been started on milrinone as per Dr. Haider, continue with Plavix 75 mg p.o. daily, sotalol 40 mg p.o. b.i.d. and Lipitor 40 mg p.o. daily. We will hold her hydrochlorothiazide and Zestril given renal dysfunction. 3. Acute on chronic systolic heart failure exacerbation, improving. The patient has diuresed nicely since admission and his acute on chronic systolic heart failure exacerbation appears to have resolved. Input by Dr. Haider and greatly appreciated. Lasix has since been discontinued. 4. Acute kidney injury. Etiology likely secondary to aggressive diuresis as well as decreased cardiac output, resulting in hypoperfusion of the kidneys in the setting of acute on chronic systolic heart failure exacerbation. As above, the patient has been started on milrinone will continue to hold diuretics. Continue to monitor renal function daily. 5. Coronary artery disease status post PCI with multiple stent placement, status post CABG. Input from Dr. Haider of cardiology noted and appreciated. Continue with care as above. 6. Hypertension. Blood pressure controlled. Continue with current medications with the exception of holding Zestril and hydrochlorothiazide given underlying renal dysfunction. 7. Hyperlipidemia. Continue with Lipitor 40 mg p.o. daily. 8. Non-insulin dependent diabetes mellitus. The patient remains well controlled with an A1c of 6.8. Continue with metformin 1000 mg p.o. b.i.d. 9. Atrial fibrillation. The patient remains rate controlled. Continue with sotalol 40 mg p.o. b.i.d. Of note, the patient's INR is noted to be supratherapeutic at 3.2. Will hold today's Coumadin dose and resume tomorrow at Coumadin 6 mg p.o. daily. Continue to monitor INR daily with a goal INR of 2 -3. 11. Prophylaxis. GI prophylaxis not indicated as patient is eating. DVT prophylaxis not indicated as patient is on Coumadin for his underlying atrial fibrillation. CODE STATUS: Full code. Sukhwinder Conroy MD cc: [id number] TT: 01/17/2017 09:42:06 Confirmation # [id number] Dictation # [id number] an MTDD
[2017-01-17] MEDS ORDERED: Sodium Chloride 0.9% 1,000 ML IV SCH (13:00)
--- NOTE | 2017-01-17 14:37 | RAD ---
HISTORY: F/U pneumonia VS CHF and compare COMPARISON: 01/15/2017. TECHNIQUE: Chest PA and lateral FINDINGS: LUNGS: No active pulmonary disease. PLEURA: No significant pleural effusion identified. No pneumothorax apparent. CARDIOVASCULAR: Cardiomegaly. No evidence of acute, significant cardiovascular disease. Position/ configuration of pacemaker Satisfactory. OSSEOUS STRUCTURES: No significant abnormalities. VISUALIZED UPPER ABDOMEN: Normal. OTHER FINDINGS: None. IMPRESSION: No active disease.
--- NOTE | 2017-01-17 16:14 | PN ---
DATE: 01/17/2017 REASON FOR CONSULTATION AND FOLLOWUP: Cardiac evaluation, history of coronary artery disease status post multiple stent, cardiomyopathy, CABG, admitted with upper respiratory tract infection, mild CHF, acute kidney injury. BRIEF CLINICAL HISTORY: A 71-year-old male with a past medical history significant for coronary love ry disease, status post CABG in 1993, status post multiple stent in 2012 and 2013 and most recently had the PTCA of the circumflex done. Complains of runny nose. Complaining of shortness of b reath, started on Lasix. History of chronic atrial fibrillation, on Coumadin. The patient ____ acut e kidney injury. Initial troponin was 2.4, now is 3.6. Yesterday started IV Primacor. Today creati nine is 3.9. Denies any chest pain, shortness of breath, any palpitation. is at the bedside. The patient ____ together with Dr. Sukhwinder Conroy and was explained to and him in the [place] language. PHYSICAL EXAMINATION: As follows: VITAL SIGNS: Temperature afebrile, heart rate 66, blood pressure 106/56. HEENT: PERRLA, intact. NECK: Supple. No carotid bruits. No thyromegaly. CHEST: Clear to auscultation. HEART: S1, S2 regular. ABDOMEN: Soft. EXTREMITIES: Clubbing and cyanosis negative. BLOOD WORKUP: As follows: WBC 12.5, hemoglobin ____, hematocrit 34.3, platelet count 229. Chemistr y shows sodium 134, potassium 4.6, chloride 94, carbon dioxide 25, anion gap of 20, BUN 86, creatinin e 3.9. BNP 6440. INR 3.24. IMPRESSION: Acute kidney injury, supratherapeutic INR, cardiomyopathy, history of coronary artery by pass graft, history of multiple stent, most recently 12/06/2016; decreased left ventricular function, ejection fraction 20%, status post automatic implanted cardiac defibrillator with 3 defibrillator le ads noted in right atrium, left ventricle and right ventricle. RECOMMENDATION: Discontinue Lasix, agree. Discontinue DO inhibitors. Continue sotalol. We will h old Coumadin today. Check PT/INR tomorrow. Continue Primacor. Start fluid 50 mL an hour and we lisa l hold lisinopril. Check the lab in the morning. We will follow with you. Thank you, Dr. Conroy, for providing us the opportunity in taking care of the patient. Repeat the lab in the morning. We will follow with you. Pavel Haider MD cc: [id number] TT: 01/17/2017 13:19:13 Confirmation # [id number] Dictation # [id number] sn
[2017-01-17] MEDS: Milrinone 20mg/100ml D5W 100 ML IV PRN (16:23)
[2017-01-17] MEDS: COMBIGAN OPTH OU SCH (22:39)
[2017-01-18] MEDS: Levalbuterol 0.63 MG/3 ML Inhal Soln UD IH SCH ×4 (01:35→19:58)
[2017-01-18 06:52] LABS: ADD MANUAL DIFF? NO
[2017-01-18 07:13] LABS: GRAN # 10.35 (1.4-6.5); GRAN % 84.7 % (50.0-68.0); HEMATOCRIT 34.4 % (42.0-52.0); LYMPH # 1.2 (1.2-3.4); LYMPH % 9.7 % (22.0-35.0); MEAN CELL VOLUME 89.8 fL (80.0-105.0); MEAN CORPUSCULAR HEMOGLOBIN 30.8 pg (25.0-35.0); MEAN CORPUSCULAR HGB CONC 34.3 g/dl (31.0-37.0); MEAN PLATELET VOLUME 9.8 fl (7.0-11.0); MONO # 0.7 (0.1-0.6); MONO % 5.6 % (1.0-6.0); PLATELET COUNT 234 [, 10^3/uL] (120.0-450.0); WHITE BLOOD COUNT 12.2 [, 10^3/ul] (4.5-11.0)
[2017-01-18 07:27] LABS: INR 4.36 (0.93-1.08)
[2017-01-18 07:40] LABS: ALB/GLOB RATIO 1.1 (1.1-1.8); BILIRUBIN,TOTAL 0.4 mg/dL (0.2-1.3); CALCIUM 8.7 mg/dL (8.4-10.5); POTASSIUM 4.5 mmol/L (3.6-5.0); TOTAL PROTEIN 6.4 g/dL (5.8-8.3)
--- NOTE | 2017-01-18 09:45 | PN ---
DATE: 01/18/2017 SUBJECTIVE: The patient appears very comfortable at rest. He is not short of breath. PHYSICAL EXAMINATION: VITAL SIGNS: Temperature is 98.3, pulse 66, respirations 19, blood pressure 95/ 53. HEENT: Normocephalic, atraumatic. No JVD. CARDIOVASCULAR: Systolic ejection murmur at the lower left sternal border. Questionable S3 gallop. LUNGS: Minimal crackles at the bases. Minimal, less rhonchi. No wheezing this morning. EXTREMITIES: Mild edema. No cyanosis, no clubbing. Calves are nontender to palpation. GASTROINTESTINAL: Abdomen is soft, nontender, nondistended. Bowel sounds are positive. SKIN: No acute rash. NEUROLOGIC: Limited at the present time. IMPRESSION: 1. Acute bronchitis. 2. Chronic obstructive pulmonary disease. 3. Congestive heart failure. 4. Extensive coronary artery disease. 5. Cardiomyopathy. 6. Chronic atrial fibrillation. PLAN: The patient appears very comfortable this morning. He is not short of breath at rest. He states he is feeling much better overall. On physical exam , his bronchospasm continues to resolve. I will continue with the current nebulizer treatments and oral steroids for now. The patient also remains on antibiotic therapy. There are no temperatures noted. Repeat a.m. labs are pending. Pulmonary status of the patient is significantly improved -- compared to the initial presentation. I would continue with the cardiology evaluation as per Dr. Haider. I will discuss the above with Dr. Conroy this morning. Roscoe Cole MD cc: [id number] TT: 01/18/2017 09:44:43 Confirmation # [id number] Dictation # [id number] en MTDD
[2017-01-18] MEDS: COMBIGAN OPTH OU SCH ×2 (10:08→17:32)
--- NOTE | 2017-01-18 10:44 | PN ---
DATE: 01/18/2017 REASON FOR CONSULTATION AND FOLLOWUP: Cardiac evaluation, history of coronary artery disease, status post multiple stents, cardiomyopathy, CABG, admitted with respiratory tract infection, mild congesti ve heart failure, acute kidney injury. BRIEF CLINICAL HISTORY: A 71-year-old male with a past medical history significant for coronary love ry disease, status post CABG in 1993, status post multiple stents 2012, 2013, most recently 12/06/2016 when the patient had a proximal stent in the circumflex. Admitted with upper respiratory tract infe ction as well as CHF. The patient got IV Lasix, went into acute kidney injury, creatinine yesterday was 3.6, went up to 3.9. The patient started on IV Primacor and now the trend is down. Denies any c hest pain, shortness of breath, any palpitation. PHYSICAL EXAMINATION: VITAL SIGNS: Temperature afebrile, heart rate 58, blood pressure 115/58. HEENT: PERRLA. Extraocular muscles intact. NECK: Supple. No carotid bruits. No thyromegaly. CHEST: Clear to auscultation. HEART: S1, S2 regular. ABDOMEN: Soft. EXTREMITIES: Clubbing, cyanosis negative. BLOOD WORKUP: WBC 12.2, hemoglobin 11.8, hematocrit 34.4, platelet count 234. Chemistry shows sodiu m 133, potassium 4. , chloride 96, carbon dioxide 24, anion gap of 18, BUN 106, creatinine 3.6. IMPRESSION: Acute kidney injury, prerenal azotemia, BUN increased up to 106, cardiomyopathy, diabete s, hypertension, hyperlipidemia, status post multiple stents. RECOMMENDATION: Continue IV Primacor. Avoid nephrotoxic medication. Lisinopril is on hold as well as Lasix on hold, diuretics is on hold. Yesterday, gave IV fluid gentle hydration for 500 mL. We wi ll repeat the blood workup in the morning. Discussed with the , discussed with the patient. If the trend remains down, patient will possibly be discharged home tomorrow. We will repeat the blood workup in the morning. Thank you, Dr. Conroy, for providing us the opportunity in taking care of the patient. Again, the computer is so slow unable to retrieve any lab or patient's information. Most of the dictation is b eing done from the top of the head. Pavel Haider MD cc:Sukhwinder Conroy MD [id number] TT: 01/18/2017 10:22:58 Confirmation # [id number] Dictation # [id number] en 01/18/2017 09:43:31
[2017-01-18] MEDS: Milrinone 20mg/100ml D5W 100 ML IV PRN (17:33)
[2017-01-19] MEDS: Levalbuterol 0.63 MG/3 ML Inhal Soln UD IH SCH ×2 (01:53→07:44)
[2017-01-19 06:26] VITALS: BP 96/56; PULSE 68; RESP 19; TEMP 97.4; O2SAT 97
[2017-01-19 06:49] LABS: ADD MANUAL DIFF? NO
[2017-01-19 07:06] LABS: GRAN # 7.28 (1.4-6.5); GRAN % 76.4 % (50.0-68.0); HEMATOCRIT 35.5 % (42.0-52.0); LYMPH # 1.4 (1.2-3.4); LYMPH % 14.5 % (22.0-35.0); MEAN CELL VOLUME 90.6 fL (80.0-105.0); MEAN CORPUSCULAR HEMOGLOBIN 31.1 pg (25.0-35.0); MEAN CORPUSCULAR HGB CONC 34.4 g/dl (31.0-37.0); MEAN PLATELET VOLUME 9.6 fl (7.0-11.0); MONO # 0.9 (0.1-0.6); MONO % 9.1 % (1.0-6.0); PLATELET COUNT 258 [, 10^3/uL] (120.0-450.0); RED CELL DISTRIBUTION WIDTH 13.1 % (11.5-14.5); WHITE BLOOD COUNT 9.5 [, 10^3/ul] (4.5-11.0)
[2017-01-19 07:17] LABS: ALB/GLOB RATIO 1.1 (1.1-1.8); BILIRUBIN,TOTAL 0.4 mg/dL (0.2-1.3); CALCIUM 9.1 mg/dL (8.4-10.5); POTASSIUM 4.7 mmol/L (3.6-5.0); TOTAL PROTEIN 6.8 g/dL (5.8-8.3)
[2017-01-19 07:25] LABS: INR 4.06 (0.93-1.08)
--- NOTE | 2017-01-19 07:41 | PN ---
DATE: 01/19/2017 SUBJECTIVE: The patient appears comfortable this morning. He is not short of breath at rest. OBJECTIVE: VITAL SIGNS: Temperature is 97.4, pulse 61, respirations 19, blood pressure 96/ 56. Oxygen saturation on nasal cannula is 97%. HEENT: Normocephalic, atraumatic. No JVD. CARDIOVASCULAR: Systolic ejection murmur at the lower left sternal border. Questionable S3 gallop. LUNGS: Minimal crackles at the bases. Very minimal/less rhonchi. No wheezing. EXTREMITIES: Mild edema. No cyanosis, no clubbing. Calves are nontender to palpation. GASTROINTESTINAL: Abdomen is soft, nontender, nondistended. Bowel sounds are positive. SKIN: No acute rash. NEUROLOGIC: Limited at the present time. IMPRESSION: 1. Acute bronchitis. 2. Chronic obstructive pulmonary disease. 3. Congestive heart failure. 4. Extensive coronary artery disease. 5. Cardiomyopathy. 6. Chronic atrial fibrillation. PLAN: The patient appears very comfortable this morning. He is not short of breath at rest. He states he is feeling much better overall. On physical exam , his bronchospasm continues to resolve. In addition, the oxygen saturation on nasal cannula is 97%. I will continue with the current nebulizer treatments and decrease the oral steroids this morning. The patient remains on antibiotic therapy. There are no temperatures noted. The leukocytosis has almost completely resolved. Repeat a.m. labs are pending. I would continue with the treatment for congestive heart failure, coronary artery disease and cardiac arrhythmias as per cardiology. Input by Dr. Haider is noted. Clinical status of the patient is certainly improved -- compared to the initial presentation. I will discuss the above with Dr. Conroy this morning. Roscoe Cole MD cc: [id number] TT: 01/19/2017 07:40:34 Confirmation # [id number] Dictation # [id number] mason BAIRES
--- NOTE | 2017-01-19 08:27 | PN ---
DATE: 01/18/2017 The patient was seen on 01/18. He is lying in bed in no acute distress, has no complaints and there h ave been no acute events overnight. REVIEW OF SYSTEMS: Unremarkable. PHYSICAL EXAMINATION: VITAL SIGNS: Temperature of 97.6, pulse rate of 66, blood pressure 132/75 and respiratory effort of 20 breaths per minute. HEENT: Negative. NECK: Supple with a full range of motion. LUNGS: Clear bilaterally. HEART: Irregular rate and rhythm. No murmurs, rubs, or gallops. ABDOMEN: Benign. NEUROLOGIC: There are no focal deficits. LABORATORY DATA: Chemistry shows a BUN of 106, which was 86 the day previous and a creatinine of 3.6 , which was 3.9 the day previous random, glucose down to 172. CBC is essentially normal with the exc eption of a hemoglobin of 12.2 and hematocrit 35.5, which has come up somewhat. The current diagnosis is congestive heart failure, coronary artery disease and diabetes. Anatoly Conroy MD cc: [id number] TT: 01/19/2017 08:26:49 Confirmation # [id number] Dictation # [id number] jn
--- NOTE | 2017-01-19 09:03 | PN ---
DATE: 01/19/[address] Haider. SUBJECTIVE: The patient is feeling well. No shortness of breath noted. PHYSICAL EXAMINATION: VITAL SIGNS: Blood pressure varies from 118 systolic to 96 systolic. The heart rate is in the 60s. NECK: Negative JVD. LUNGS: Basilar rhonchi without rales. HEART: Reveals S1, S2. EXTREMITIES: Without edema. LABORATORIES: Hemoglobin is 12.2. Chemistries: The BUN and creatinine is 107 and 3.0. IMPRESSION: 1. Resolution of congestive heart failure. 2. Dilated cardiomyopathy. 3. Chronic obstructive pulmonary disease. 4. Renal insufficiency. 5. Coronary artery disease. PLAN: Given these findings, the patient is much improved. We will discontinue milrinone today. From a cardiac perspective, the patient can be discharged. Fol lowup and instructions have been arranged for the patient. Rudolph Gallegos MD cc: [id number] TT: 01/19/2017 09:03:06 Confirmation # [id number] Dictation # [id number] tn
[2017-01-19] MEDS: COMBIGAN OPTH OU SCH (09:22)
--- NOTE | 2017-01-19 09:27 | PN ---
DATE: 01/19/2017 SUBJECTIVE: The patient seen and examined at bedside on the telemetry cardozo. No acute events overnig ht. He remains afebrile and hemodynamically stable. This morning, the patient continues to endorse resolution of his respiratory symptoms and is looking forward to going home. OBJECTIVE: VITAL SIGNS: Temperature 97.4, pulse 61, blood pressure 118/58, respiratory rate 20, oxygen saturati on 97% on 2 L nasal cannula. GENERAL: No apparent distress. HEENT: PERRL. EOMI. No scleral icterus. No conjunctival pallor. NECK: No JVD, no bruits. LUNGS: Faint expiratory wheeze. CARDIOVASCULAR: Regular rate and rhythm. Normal S1 and S2. CHEST: AICD in place to left anterior chest wall. ABDOMEN: Normoactive bowel sounds, soft, nontender, nondistended. EXTREMITIES: No edema. NEUROLOGIC: Awake, alert and oriented x 3. No focal motor deficits. LABORATORY DATA: WBC 9.5 with 76% neutrophils, hemoglobin 12, hematocrit 36, platelets 258. Sodium 136, potassium 4.7, chloride 96, bicarb 27, BUN 107, creatinine 3, glucose 121. INR 4.06. ASSESSMENT: The patient is a 71-year-old man with multiple medical comorbidities who was admitted to [facility] for management of acute bronchitis superimposed on acute on chronic systolic heart failure exacerbation and whose hospital course was complicated by acute kidney injury who is no w clinically improving and stable for discharge to home. PLAN: 1. Acute bronchitis, resolving. Input from Dr. Cole of pulmonary and critical care medicine note d and appreciated. The patient has demonstrated resolution of his respiratory symptoms. Continue wi th bronchodilators and supplemental oxygen as needed. The patient is on prednisone 30 mg p.o. daily and with resolution of his wheezing, we will discontinue steroids. Continue with Levaquin 250 mg p.o . daily to complete a 7-day course (today is day #5 of 7). 2. Ischemic cardiomyopathy, status post CABG, status post AICD. Input from Dr. Haider and Dr. Gallegos of cardiology noted and appreciated. The patient is status post course of IV milrinone with improvemen t in his renal function. Continue with Plavix 75 mg p.o. daily, sotalol 40 mg p.o. b.i.d. and Lipito r 40 mg p.o. daily. Continue to hold hydrochlorothiazide and Zestril given his renal dysfunction. 3. Acute on chronic systolic heart failure exacerbation, improving. As above, the patient is status post course of milrinone, will be discontinued today in anticipation of discharge. 4. Acute kidney injury. Etiology likely secondary to aggressive diuresis in the setting of low card iac output resulting in hypoperfusion of the kidneys. As above, renal function has peaked at a creat inine of 3.9 and is trending favorably. 5. CAD, status post PCI with multiple stent placement, status post CABG. Continue with care as agustin copleand 6. Hypertension. Blood pressure controlled. Continue with current medications with the exception o f holding Zestril and hydrochlorothiazide given underlying renal dysfunction. 7. Hyperlipidemia. Continue with Lipitor 40 mg p.o. daily. 8. Noninsulin dependent diabetes mellitus. The patient is well controlled with an A1c of 6.8. Cont inue with metformin 1000 mg p.o. b.i.d. 9. Atrial fibrillation. The patient remains rate controlled. Continue with sotalol 40 mg p.o. b.i. d. The patient's INR is noted to be supratherapeutic at 4.06. I advised the patient and his family to hold Coumadin until Saturday at which point in time, he will come to our office and have his INR lev el rechecked and adjusted for a goal INR of 2-3. 10. Prophylaxis. GI prophylaxis not indicated as the patient is eating. DVT prophylaxis not indica parker as patient is on Coumadin for his underlying atrial fibrillation and with a supratherapeutic INR. 11. Disposition: The patient for discharge to home today. CODE STATUS: Full code. Sukhwinder Conroy MD cc: [id number] TT: 01/19/2017 09:26:54 Confirmation # [id number] Dictation # [id number] tn
--- NOTE | 2017-01-19 16:16 | DS ---
ADMITTING DIAGNOSES: Acute bronchitis, acute on chronic systolic heart failure exacerbation. DISCHARGE DIAGNOSES: Acute bronchitis, acute on chronic systolic heart failure exacerbation. SECONDARY DIAGNOSES: Ischemic cardiomyopathy s/p AICD, CAD s/p PCI with multiple stent placement s/p CABG, acute kidney injury, hypertension, hyperlipidemia, non-insulin dependent diabetes mellitus, atrial fibrillation. CONSULTATIONS: Dr. Haider (cardiology), Dr. Cole (pulmonary and critical care medicine). IMAGING STUDIES: Chest x-ray, which demonstrated pulmonary venous congestion and a suspicious infiltrate to the right lower lung. HISTORY OF PRESENT ILLNESS: The patient is a 71-year-old man with multiple medical comorbidities including ischemic cardiomyopathy status post AICD placement, CAD status post CABG (1993), status post PCI with multiple stent placement (2012, 2013, and most recently in 11/2016), hyperlipidemia, hypertension, and atrial fibrillation, who presented to [facility] for evaluation of a several-hour history of dyspnea. The patient was reportedly in his usual state of health until the day of presentation to the Emergency Department when he developed a sudden onset of chest tightness associated with dyspnea. The patient reported significant respiratory distress associated with accessory muscle use and conversational dyspnea, which prompted his visit to the Emergency Department. Upon arrival to the ED he was noted to be tachypneic and hypoxic with an oxygen saturation of 90% on room air. He was placed on supplemental oxygen via nasal cannula, and received multiple rounds of bronchodilator treatments with only minimal improvement in his respiratory symptoms. Given his ongoing respiratory distress and the fact that his labs were consistent with an acute on chronic systolic heart failure exacerbation, the patient was admitted to the telemetry cardozo for continued management of acute bronchitis superimposed on acute on chronic systolic heart failure exacerbation. HOSPITAL COURSE: Upon admission to the telemetry cardozo the patient was started on Lasix 40 mg IV daily. Over the following 24 hours the patient was noted to diuresis satisfactorily, and had reported near resolution of his pulmonary symptoms. He was followed by Dr. Cole of pulmonary and critical care medicine, who maintained the patient on Solu-Medrol, which was tapered to prednisone p.o. The patient was also followed by Dr. Haider of cardiology. On hospital day #2 the patient was noted to have an acute rise in his creatinine , and his acute kidney injury was attributed to aggressive diuresis, given his presentation with acute on chronic systolic heart failure exacerbation. The patient's renal function was followed for the remainder of his hospital stay, and over the following day was noted again to increase. At this point in time, the patient was placed on a milrinone drip and gentle IV fluid hydration consisting of normal saline at 50 mL an hour so as to promote perfusion of his kidneys. The patient demonstrated significant improvement in his cardiopulmonary status, and his renal function was noted to trend favorably, and by hospital day #4, he was deemed stable for discharge to home. Of note however, the patient was noted to have a supratherapeutic INR of 4.06 despite holding his Coumadin. The patient was advised to hold his Coumadin for the following 2 days until he is evaluated by his PMD on Saturday, at which point in time an INR level will be checked and a determination will be made for the continued dose of Coumadin. CONDITION: Good, improved. DISPOSITION: To home. DISCHARGE MEDICATIONS: Sotalol 40 mg p.o. b.i.d., simvastatin 40 mg p.o. daily , Plavix 75 mg p.o. daily, metformin 1000 mg p.o. b.i.d., ProAir HFA 2 puffs q. 4-6 hours p.r.n. dyspnea or wheeze. The patient was advised to hold Coumadin 7.5 mg p.o. daily, to hold Lasix 40 mg p.o. b.i.d., and to hold telmisartan/hydrochlorothiazide 40/12.5 mg p.o. daily. DISCHARGE INSTRUCTIONS: The patient was advised that if he has any recurrence of his symptoms or any development of chest discomfort, dyspnea, fevers, chills , or rigors to present to his PMD or to the nearest Emergency Department immediately. FOLLOWUP: The patient to follow up with his PMD on Saturday (01/21/2017) to repeat an INR and to determine continued use of Coumadin. The patient will also have his CMP repeated so as to assess for continued resolution of his acute kidney injury. The patient to follow up with Dr. Haider of cardiology as scheduled. Sukhwinder Conroy MD cc: [id number] TT: 01/19/2017 16:15:33 jn MTDD
== END 2017-01-19 10:13 | disposition home or self-care (01) | DRG 190 ==
LOC: ED 03:29 → ERH 06:01 → 2RNO 08:24
PROVIDERS: ADMIT Student in an Organized Health Care Education/Training Program; ATTEND Student in an Organized Health Care Education/Training Program
PROC: 3E0F7GC Introduction of Other Therapeutic Substance into Respiratory Tract, Via Natural or Artificial Opening (ICD-10-PCS; principal; 2017-01-15)
DX: J44.0 Chronic obstructive pulmonary disease with (acute) lower respiratory infection (principal); J20.9 Acute bronchitis, unspecified; I50.23 Acute on chronic systolic (congestive) heart failure; N17.9 Acute kidney failure, unspecified; I42.0 Dilated cardiomyopathy; I11.0 Hypertensive heart disease with heart failure; I25.5 Ischemic cardiomyopathy; I25.10 Atherosclerotic heart disease of native coronary artery without angina pectoris; R09.02 Hypoxemia; I48.2 Chronic atrial fibrillation; E11.9 Type 2 diabetes mellitus without complications; E78.5 Hyperlipidemia, unspecified; I48.0 Paroxysmal atrial fibrillation; Z79.01 Long term (current) use of anticoagulants; Z79.84 Long term (current) use of oral hypoglycemic drugs; Z79.02 Long term (current) use of antithrombotics/antiplatelets; Z95.810 Presence of automatic (implantable) cardiac defibrillator; Z95.1 Presence of aortocoronary bypass graft; Z95.5 Presence of coronary angioplasty implant and graft; Z82.49 Family history of ischemic heart disease and other diseases of the circulatory system; Z83.3 Family history of diabetes mellitus